=== PATIENT | female | born 1975 | race Caucasian/White ===

== ENCOUNTER 2019-02-27 19:04 | Observation (INO) ==
[2019-02-27] MEDS ORDERED: NARCAN IV ONE (19:53)
[2019-02-27 19:54] LABS: URINE SOURCE CATH
[2019-02-27 19:58] LABS: BILIRUBIN URINE NEGATIVE (NEGATIVE); BLOOD URINE NEGATIVE (NEGATIVE); COLOR YELLOW; GLUCOSE URINE NEGATIVE (NEGATIVE); KETONE URINE NEGATIVE (NEGATIVE); LEUKOCYTES URINE NEGATIVE (NEGATIVE); NITRITE URINE NEGATIVE (NEGATIVE); PROTEIN URINE NEGATIVE (NEGATIVE); SP GRAVITY URINE 1.008; TURBIDITY URINE CLEAR (CLEAR); UR EPITHELIAL CELLS <10 /HPF (<10); URINE BACTERIA NEGATIVE /HPF; URINE RBC <10 /HPF (<10); URINE WBC <10 /HPF (<10); UROBILINOGEN URINE NORMAL (NORMAL)
[2019-02-27 20:09] LABS: UR AMPHETAMINES QUAL NONE DETECTED (NONE DETECT); UR BARBITUATES QUAL NONE DETECTED (NONE DETECT); UR BENZODIAZEPIN QUAL NONE DETECTED (NONE DETECT); UR CANNABINOIDS QUAL NONE DETECTED (NONE DETECT); UR COCAINE QUAL NONE DETECTED (NONE DETECT); UR METHADONE QUAL NONE DETECTED (NONE DETECT); UR OPIATES QUAL NONE DETECTED (NONE DETECT); UR OXYCODONE QUAL NONE DETECTED (NONE DETECT); UR PCP QUAL NONE DETECTED (NONE DETECT)
[2019-02-27 20:13] LABS: BASO# 0.03 X1000 (0.0-0.2); BASO% 0.4 % (0.0-0.8); EOS% 1.3 % (0.0-10.0); HEMATOCRIT 44.9 % (37.0-47.0); HEMOGLOBIN 14.9 g/dL (12.0-16.0); LYMPH# 3.23 X1000 (1.2-3.4); LYMPH% 42.4 % (20.5-51.1); MCH 30.6 PG (27-31); MCHC 33.2 g/dL (33-37); MCV 92.2 FL (81-99); MONO# 0.53 X1000 (0.11-0.59); MPV 10.9 FL (7.4-10.4); NEUT# 3.72 X1000 (1.4-6.5); NEUT% 48.9 % (42.2-75.2); PLT 209 X1000 (130-400); RBC 4.87 XMIL (4.2-5.4); RDW 13.7 % (11.5-14.5); WBC 7.61 X1000 (4.8-10.8)
[2019-02-27 20:26] LABS: CHLORIDE 103 mmol/L (98-107); POTASSIUM 3.4 mmol/L (3.5-5.1); SODIUM 139 mmol/L (136-145)
[2019-02-27 20:34] LABS: INR 0.98; PROTIME 13.1 Seconds (11.0-16.0)
[2019-02-27 20:39] LABS: FREE T4 1.32 ng/dL (0.93-1.70); TSH 0.94 uIUmL (0.27-4.20)
[2019-02-27 21:09] LABS: AGAP 16; ALBUMIN 4.3 g/dL (3.5-5.0); BUN 4 mg/dL (8-22); CALCIUM 8.4 mg/dL (8.8-10.2); COSMO 278; CREATININE 0.8 mg/dL (0.5-0.9); GLUCOSE 97 mg/dL (70-104); TCO2 21 mmol/L (25-35); TOTAL BILIRUBIN 0.26 mg/dL (0.20-1.00)
[2019-02-27 21:10] LABS: ACETAMINOPHEN 62.1 ug/mL (10-30); ALB/GLOB RATIO 1.6; ALKALINE PHOSPHATASE 68 U/L (32-104); GOT 18 U/L (10-30); GPT 12 U/L (10-36)
[2019-02-27 21:35] LABS: ALLEN TEST YES; BE 0.2 mmoll (-3.0-3.0); BLOOD TYPE ARTERIAL; HCO3-(ACT) 24.8 mmoll (20.0-26.0); METHB 1.2 % (0.0-1.5); O2(CT) 19.4 mL/dL (15.0-23.0); PCO2(98.6) 39 mmHg (35-45); PO2(98.6) 99 mmHg (60-100); SAMPLE BLOOD; SAO2 99.3 % (95.0-100.0); THB 15.5 g/dL (11.5-17.4); pH(98.6) 7.41 (7.35-7.45)
[2019-02-27 21:38] LABS: O2HB 88.7 % (95.0-99.0)
[2019-02-27 21:39] LABS: MODALITY ROOM AIR
--- NOTE | 2019-02-27 21:42 | Diag Imaging Result Doc PS360 ---
EXAM: CT HEAD W/O CONTRAST INDICATION: AMS TECHNIQUE: This exam was performed using automated exposure control, adjustment of mA or kV according to patient size, and/or use of iterative reconstruction technique. COMPARISON: 06/06/2017 FINDINGS: There is no definite acute infarct given the limited sensitivity of CT versus MRI. There is no discrete intracranial mass, mass effect, or intracranial hemorrhage. The surrounding soft tissues and bony structures are essentially unremarkable. IMPRESSION: No evidence of acute intracranial pathology. Electronically signed by Andres Brenner 02/27/2019 9:39 PM
--- NOTE | 2019-02-27 21:54 | PROVIDER DOCUMENTATION ---
This chart was entered by Nolberto Cota Scribe, acting as scribe for Maddison Gandhi MD. [id number] Abuse/Overdose - General Chief Complaint: Suicide Attempt Stated Complaint: OVERDOSE Time Seen by Provider: 02/27/19 19:20 Source: patient, family Unable to obtain history due to:: altered Allergies/Adverse Reactions: Allergies Allergy/AdvReac Type Severity Reaction Status Date / Time lorazepam [From Ativan] Allergy Severe SHORTNESS Verified 02/27/19 19:50 OF BREATH Home Medications: Home Medication List Medication Instructions Recorded Confirmed Last Taken Type Escitalopram [Lexapro] 10 mg PO QAM 04/22/12 02/27/19 12/06/17 09:00 History Clonazepam [Klonopin] 0.5 mg PO DAILY #12 tab 04/10/17 02/27/19 12/06/17 09:00 Rx Tramadol [Ultram] 50 mg PO TID #15 tab 04/10/17 02/27/19 12/05/17 21:00 Rx Omeprazole [Prilosec] 20 mg PO DAILY@0700 #20 cap 06/06/17 02/27/19 12/06/17 09:00 Rx Rizatriptan Benzoate [Rizatriptan] 10 mg PO DAILY 06/06/17 02/27/19 12/06/17 09:00 History Topiramate 50 mg PO DAILY 06/06/17 02/27/19 12/06/17 09:00 History Phenazopyridine HCl [Pyridium] 200 mg PO TID #6 tab 12/06/17 02/27/19 Unknown Rx Sulfamethoxazole/Trimethoprim 1 ea PO BID #20 tab 12/06/17 02/27/19 Unknown Rx [Bactrim Ds Tablet] Etodolac [Lodine] 400 mg PO BID CC #20 tab 07/09/18 02/27/19 Unknown Rx Tramadol [Ultram] 50 mg PO Q6H PRN PRN #22 tab 07/09/18 02/27/19 Unknown Rx Promethazine [Phenergan] 25 mg PO Q6H PRN PRN #20 tab 10/21/18 02/27/19 Unknown Rx - History of Present Illness-Drug/Alcohol Nature of Presenting Problem: Pt is a 43 yof who presents to the ED with family with a CC of suicide attempt. Pt's sister reports the pt sent her a text this evening with a Ge.tt message. Pt's sister reports the pt took Tylenol and Gabapentin among other pills in an attempt to overdose. Pt's sister denies a previous suicide attempt, but reports a [facility] admission in the pt's teenage years. Family states that the bottle of tylenol had 100 tabs but was only about 1/3 full prior to today and patient took all of it. THey do not know what else she took. This episode of drinking or use began:: 1-3 hours ago Severity: reports: mild Psychiatric Complaints: reports: depressed, suicidal ideation Any injuries associated with this episode of intoxication?: No Similar Symptoms Previously?: No Recently seen or treated by another doctor?: No - Overdose Intentional drug overdose?: Yes Clinician's estimation of suicide risk?: high risk Review of Systems - Adult - REVIEW OF SYSTEMS - ADULT Constitutional: reports: see HPI Eyes: reports: no symptoms reported Ears, Nose, Mouth & Throat: reports: no symptoms reported Cardiovascular: reports: no symptoms reported Respiratory: reports: no symptoms reported Gastrointestinal: reports: no symptoms reported Genitourinary: reports: no symptoms reported Musculoskeletal: reports: no symptoms reported Integumentary: reports: no symptoms reported Neurological: reports: no symptoms reported Psychiatric: reports: see HPI, depression, suicidal thoughts Endocrine: reports: no symptoms reported Hematologic/Lymphatic: reports: no symptoms reported Allergic/Immunologic: reports: no symptoms reported All Other Systems: Reviewed and Negative Past History - Adult - PAST MEDICAL HISTORY-ADULT Review of Records: reports: Old Records Reviewed, Nursing Assessment Review, Medications Reviewed, Social history reviewed & non-contributory. Major Childhood Illnesses: reports: denies history Cardiovascular: reports: CAD, hyperlipidemia, PA Respiratory: reports: asthma, COPD, other (history of pneumothorax) Gastrointestinal: reports: denies history Obstetrical/Gynecological: reports: other (cervical cancer) Genitourinary: reports: denies history Musculoskeletal: reports: arthritis, chronic pain Neurological: reports: headaches/migraines, Seizures/Epilepsy Psychiatric: reports: depression Endocrine/Immune: reports: Diabetes, hypoglycemia, RA Other Conditions: reports: denies history - PRIOR SURGERIES/PROCEDURES Surgical/Procedure History: reports: appendectomy, hysterectomy, other (pneumothorax) - IMMUNIZATION STATUS Childhood Immunizations: See Nurse Assessment Flu Vaccine: See Nurse Assessment - FAMILY HISTORY Family History: reviewed, not pertinent - SOCIAL HISTORY Smoking: cigarettes, greater than 1 pack/day Substance Use: none/never, denies Alcohol Use Frequency: never Physical Exam-General - PHYSICAL EXAM-ADULT Exam Limited by: Pt's condition Initial Vital Signs Reviewed: Yes - CONSTITUTIONAL General Appearance: mild distress, other (Unresponsive; Exam limited due to pt's condition) - EYES Eyes: other (Exam limited due to pt's condition) - HEAD, EARS, NOSE, MOUTH & THROAT HENMT: normocephalic/atraumatic, other (Exam limited due to pt's condition) - NECK Neck: non-tender, other (Exam limited due to pt's condition) - RESPIRATORY Respiratory: lungs clear, normal breath sounds, no respiratory distress, other (Exam limited due to pt's condition) - CARDIOVASCULAR Cardiovascular: normal peripheral pulses, regular rate, rhythm, no edema, other (Exam limited due to pt's condition) - GASTROINTESTINAL (ABDOMEN) Abdominal Exam: non tender, soft, other (Exam limited due to pt's condition) - MUSCULOSKELETAL Extremity: non-tender, other (Exam limited due to pt's condition) - SKIN Integumentary: normal color, warm/dry, other (Exam limited due to pt's condition) - NEUROLOGIC Neurologic: motor weakness, sensory deficit, other (Exam limited due to pt's condition) - PSYCHIATRIC Psych/Mental Status: disoriented x 3, other (Exam limited due to pt's condition) Progress - PLAN OF CARE/RESULTS Progress/Plan/Lab Results: Vital Signs - 8 hr 02/27/19 20:30 02/27/19 20:45 02/27/19 21:00 Pulse Rate 68 70 72 Respiratory Rate 24 13 19 Blood Pressure O2 Sat by Pulse Oximetry 98 98 99 02/27/19 21:15 02/27/19 21:25 Pulse Rate 76 74 Respiratory Rate 20 21 Blood Pressure 105/74 O2 Sat by Pulse Oximetry 98 98 Laboratory Results - last 24 hr 02/27/19 02/27/19 02/27/19 19:15 19:15 19:15 WBC 7.61 RBC 4.87 Hgb 14.9 Hct 44.9 MCV 92.2 MCH 30.6 MCHC 33.2 RDW Std Deviation 13.7 Plt Count 209 MPV 10.9 H Neut % (Auto) 48.9 Lymph % (Auto) 42.4 [place] % (Auto) 7.0 Eos % (Auto) 1.3 Baso % (Auto) 0.4 Neut # (Auto) 3.72 Lymph # (Auto) 3.23 [place] # (Auto) 0.53 Eos # (Auto) 0.10 Baso # (Auto) 0.03 PT INR PTT (Actin FS) Specimen Type Sample Site pH pCO2 pO2 HCO3 Base Excess Oxyhemoglobin ABG O2 Sat (Calculated) ABG O2 Saturation ABG Carboxyhemoglobin ABG Methemoglobin Jerry Test A-a O2 Difference Total Hemoglobin Lactate Blood Gas Modality FiO2 % Sodium 139 Potassium 3.4 L Chloride 103 Carbon Dioxide 21 L Anion Gap 16 BUN 4 L Creatinine 0.8 BUN/Creatinine Ratio 5 Glucose 97 Calculated Osmolality 278 Calcium 8.4 L Total Bilirubin 0.26 Direct Bilirubin AST 18 ALT 12 Alkaline Phosphatase 68 Total Protein 7.0 Albumin 4.3 Globulin 2.7 Albumin/Globulin Ratio 1.6 Vitamin B12 472 TSH 0.94 Free T4 1.32 Urine Source Urine Color Urine Turbidity Urine pH Ur Specific [place] Urine Protein Ur Glucose (Stick) Ur Ketones (Stick) Urine Blood Urine Nitrite Urine Bilirubin Urobilinogen Dipstick Urine Leukocytes Urine WBC (Auto) Urine RBC (Auto) U Epithel Cells (Auto) Urine Bacteria (Auto) Salicylates 0.00 L Urine Opiates Screen Ur Oxycodone Screen Ur Methadone, Qual Acetaminophen 62.1 H Ur Barbiturates Screen Ur Phencyclidine Scrn Ur Amphetamines Screen U Benzodiazepines Scrn Urine Cocaine Screen U Cannabinoids Screen Plasma/Serum Ethyl Alc 02/27/19 02/27/19 02/27/19 19:15 19:15 19:15 WBC RBC Hgb Hct MCV MCH MCHC RDW Std Deviation Plt Count MPV Neut % (Auto) Lymph % (Auto) [place] % (Auto) Eos % (Auto) Baso % (Auto) Neut # (Auto) Lymph # (Auto) [place] # (Auto) Eos # (Auto) Baso # (Auto) PT 13.1 INR 0.98 PTT (Actin FS) 32.9 Specimen Type Sample Site pH pCO2 pO2 HCO3 Base Excess Oxyhemoglobin ABG O2 Sat (Calculated) ABG O2 Saturation ABG Carboxyhemoglobin ABG Methemoglobin Jerry Test A-a O2 Difference Total Hemoglobin Lactate Blood Gas Modality FiO2 % Sodium Potassium Chloride Carbon Dioxide Anion Gap BUN Creatinine BUN/Creatinine Ratio Glucose Calculated Osmolality Calcium Total Bilirubin Direct Bilirubin AST ALT Alkaline Phosphatase Total Protein Albumin Globulin Albumin/Globulin Ratio Vitamin B12 TSH Free T4 Urine Source Urine Color Urine Turbidity Urine pH Ur Specific [place] Urine Protein Ur Glucose (Stick) Ur Ketones (Stick) Urine Blood Urine Nitrite Urine Bilirubin Urobilinogen Dipstick Urine Leukocytes Urine WBC (Auto) Urine RBC (Auto) U Epithel Cells (Auto) Urine Bacteria (Auto) Salicylates Urine Opiates Screen Ur Oxycodone Screen Ur Methadone, Qual Acetaminophen Ur Barbiturates Screen Ur Phencyclidine Scrn Ur Amphetamines Screen U Benzodiazepines Scrn Urine Cocaine Screen U Cannabinoids Screen Plasma/Serum Ethyl Alc 02/27/19 02/27/19 02/27/19 19:23 19:23 21:25 WBC RBC Hgb Hct MCV MCH MCHC RDW Std Deviation Plt Count MPV Neut % (Auto) Lymph % (Auto) [place] % (Auto) Eos % (Auto) Baso % (Auto) Neut # (Auto) Lymph # (Auto) [place] # (Auto) Eos # (Auto) Baso # (Auto) PT INR PTT (Actin FS) Specimen Type ARTERIAL Sample Site R RADIAL pH 7.41 pCO2 39 pO2 99 HCO3 24.8 Base Excess 0.2 Oxyhemoglobin 88.7 L* ABG O2 Sat (Calculated) 19.4 ABG O2 Saturation 99.3 ABG Carboxyhemoglobin 9.60 H* ABG Methemoglobin 1.2 Jerry Test YES A-a O2 Difference 2.0 Total Hemoglobin 15.5 Lactate 0.60 Blood Gas Modality ROOM AIR FiO2 % 21.0 Sodium Potassium Chloride Carbon Dioxide Anion Gap BUN Creatinine BUN/Creatinine Ratio Glucose Calculated Osmolality Calcium Total Bilirubin Direct Bilirubin AST ALT Alkaline Phosphatase Total Protein Albumin Globulin Albumin/Globulin Ratio Vitamin B12 TSH Free T4 Urine Source CATH Urine Color YELLOW Urine Turbidity CLEAR Urine pH 6.0 Ur Specific [place] 1.008 Urine Protein NEGATIVE Ur Glucose (Stick) NEGATIVE Ur Ketones (Stick) NEGATIVE Urine Blood NEGATIVE Urine Nitrite NEGATIVE Urine Bilirubin NEGATIVE Urobilinogen Dipstick NORMAL Urine Leukocytes NEGATIVE Urine WBC (Auto) <10 Urine RBC (Auto) <10 U Epithel Cells (Auto) <10 Urine Bacteria (Auto) NEGATIVE Salicylates Urine Opiates Screen NONE DETECTED Ur Oxycodone Screen NONE DETECTED Ur Methadone, Qual NONE DETECTED Acetaminophen Ur Barbiturates Screen NONE DETECTED Ur Phencyclidine Scrn NONE DETECTED Ur Amphetamines Screen NONE DETECTED U Benzodiazepines Scrn NONE DETECTED Urine Cocaine Screen NONE DETECTED U Cannabinoids Screen NONE DETECTED Plasma/Serum Ethyl Alc 02/27/19 02/27/19 23:38 23:38 WBC RBC Hgb Hct MCV MCH MCHC RDW Std Deviation Plt Count MPV Neut % (Auto) Lymph % (Auto) [place] % (Auto) Eos % (Auto) Baso % (Auto) Neut # (Auto) Lymph # (Auto) [place] # (Auto) Eos # (Auto) Baso # (Auto) PT INR PTT (Actin FS) Specimen Type Sample Site pH pCO2 pO2 HCO3 Base Excess Oxyhemoglobin ABG O2 Sat (Calculated) ABG O2 Saturation ABG Carboxyhemoglobin ABG Methemoglobin Jerry Test A-a O2 Difference Total Hemoglobin Lactate Blood Gas Modality FiO2 % Sodium Potassium Chloride Carbon Dioxide Anion Gap BUN Creatinine BUN/Creatinine Ratio Glucose Calculated Osmolality Calcium Total Bilirubin 0.28 Direct Bilirubin 0.10 AST 15 ALT 12 Alkaline Phosphatase 68 Total Protein 6.9 Albumin 4.2 Globulin 2.7 Albumin/Globulin Ratio 1.6 Vitamin B12 TSH Free T4 Urine Source Urine Color Urine Turbidity Urine pH Ur Specific [place] Urine Protein Ur Glucose (Stick) Ur Ketones (Stick) Urine Blood Urine Nitrite Urine Bilirubin Urobilinogen Dipstick Urine Leukocytes Urine WBC (Auto) Urine RBC (Auto) U Epithel Cells (Auto) Urine Bacteria (Auto) Salicylates Urine Opiates Screen Ur Oxycodone Screen Ur Methadone, Qual Acetaminophen 14.9 Ur Barbiturates Screen Ur Phencyclidine Scrn Ur Amphetamines Screen U Benzodiazepines Scrn Urine Cocaine Screen U Cannabinoids Screen Plasma/Serum Ethyl Alc Orders Category [facility] Routine AdmDCTranf 02/28/19 02:13 Active Activity - Strict Bedrest ORDERED Care 02/28/19 02:13 Active Apply Mechanical Device [QM] ORDERED Care 02/28/19 02:13 Active Intake and Output-Strict ORDERED Care 02/28/19 02:13 Active Misc. NRSG Communication Order DIRECTED Care 02/27/19 23:06 Active Misc. NRSG Communication Order DIRECTED Care 02/27/19 23:42 Active Vital Signs Order Q1H Care 02/28/19 02:13 Active Z-Document. for Tele Applied ORDERED Care 02/28/19 02:13 Active Destiny Morel Routine Cons 02/28/19 08:00 Ordered NPO Diet 02/28/19 02:[address] HEAD W/O CONTRAST [CT] Stat Exams 02/27/19 21:20 Completed ABG [RESP] Routine Lab 02/27/19 21:25 Completed ALCOHOL BLOOD Stat Lab 02/27/19 19:15 Completed BASIC METABOLIC PANEL [CHEM] Routine Lab 02/28/19 04:04 Received CBC WITH DIFF [HEME] Routine Lab 02/28/19 04:04 Results CBC WITH ELECTRONIC DIFF [HEME] Stat Lab 02/27/19 19:15 Completed COMPREHENSIVE METABOLIC PANEL [CHEM] Stat Lab 02/27/19 19:15 Completed FREE T4 Stat Lab 02/27/19 19:15 Completed LFT [HEPATIC FUNCTION] [CHEM] Stat Lab 02/27/19 23:38 Completed MAGNESIUM [CHEM] Routine Lab 02/28/19 04:04 Received PROTIME WITH INR [COAG] Stat Lab 02/27/19 19:15 Completed PTT [COAG] Stat Lab 02/27/19 19:15 Completed SALICYLATES [TDM] Stat Lab 02/27/19 19:15 Completed TSH Routine Lab 02/28/19 04:04 Received TSH Stat Lab 02/27/19 19:15 Completed Tylenol [ACETAMINOPHEN] [TDM] Q4H Lab 02/28/19 04:04 Received Tylenol [ACETAMINOPHEN] [TDM] Q4H Lab 02/28/19 08:00 Ordered Tylenol [ACETAMINOPHEN] [TDM] Stat Lab 02/27/19 19:15 Completed Tylenol [ACETAMINOPHEN] [TDM] Stat Lab 02/27/19 23:38 Completed URINALYSIS W/POSS RFLX CULT [URINALYSIS] Stat Lab 02/27/19 19:23 Completed URINE DRUG SCREEN Stat Lab 02/27/19 19:23 Completed VITAMIN B12 Stat Lab 02/27/19 19:15 Completed 0.9% Sodium Chloride Inj [Ns] 1,000 ml Med 02/27/19 23:05 Active IV 75 mls/hr 0.9% Sodium Chloride Inj [Ns] 500 ml Med 02/27/19 23:36 Discontinued IV 999 mls/hr Albuterol 2.5MG/Ipratrop 0.5MG [Duoneb (A & A)] Med 02/28/19 04:00 Active 3 ml INH RTQ6H Naloxone [Narcan] Med 02/27/19 19:53 Discontinued 2 mg IV NOW ONE Omeprazole [Prilosec] Med 02/28/19 07:00 Active 20 mg PO DAILY@0700 Ondansetron [Zofran] Med 02/28/19 02:13 Active 4 mg IV Q4H PRN PRN Pantoprazole [Protonix] Med 02/27/19 23:09 Discontinued 40 mg IV NOW ONE Potassium Chloride E.r. [Klor-Con] Med 02/28/19 02:13 Discontinued 40 meq PO NOW ONE Sodium Chloride 0.9% Med 02/27/19 23:09 Discontinued 10 ml INJ NOW ONE Water, Sterile Inj [Sterile Water Inj] Med 02/27/19 22:14 Discontinued 10 ml .ROUTE .STK-MED ONE Ziprasidone [Geodon] Med 02/27/19 22:14 Discontinued 20 mg .ROUTE .STK-MED ONE Aerosol Treatments Routine Oth 02/28/19 02:13 Active Aerosol Treatments Stat Oth 02/28/19 02:13 Active Telemetry [OM.EQ] Routine Oth 02/28/19 02:13 Active EKG [EKG] Routine Ther 02/28/19 08:00 Ordered Transfer/Admit Order [TRANSFER] Routine Transfer 02/27/19 23:06 Completed Patient with ingestion of unknown amount of tylenol. Initial tylenol level is only 62. No need for NAC. CT Head negative for anything acute. Other tox negative. Spoke to Dr Mendoza astronomy professor for hospitalist and discussed need for a dmission for repeat tylenol levels and monitoring and likely psych eval in the morning. Further orders to be placed by their team. After admission patient became acutely angry and wanted to leave the hospital. She had a likely intentional OD and was altered upon arrival. Spoke to patient and she continues to try and be combative. Patient given geodon and calmed down. Result Diagrams: 02/27/19 19:15 02/27/19 19:15 - EKG 1 Time of EKG reading by physician:: 19:22 EKG Read and Signed by:: Maddison Gandhi EKG Interpretation (*Must complete 3 of following elements*): Abnormal (Low voltage QRS; Cannot rule out anterior infarct, age undetermined) Rate: 82 Rhythm: NSR [place]: normal QRS: other [place] Interval: normal ST Wave: normal - CT/MRI 1 CT Study: Head ( EXAM: CT HEAD W/O CONTRAST INDICATION: AMS TECHNIQUE: This exam was performed using automated exposure control, adjustment of mA or kV according to patient size, and/or use of iterative reconstruction technique. COMPARISON: 06/06/2017 FINDINGS: There is no definite acute infarct given the limited sensitivity of CT versus MRI. There is no discrete intracranial mass, mass effect, or intracranial hemorrhage. The surrounding soft tissues and bony structures are essentially unremarkable. IMPRESSION: No evidence of acute intracranial pathology. Electronically signed by Andres Brenner 02/27/2019 9:39 PM) - CONSULTS/PCP/HOSPITALIST Notification #1 *Consult/PCP/Hospitalist*: Dr Mendoza Time Discussed: 21:25 Consult Disposition: Admit Departure - Departure Date of Disposition Decision: 02/27/19 Time of Disposition Decision: 21:15 DIAGNOSIS: Tylenol overdose, Suicidal ideations Disposition: ADMITTED INPATIENT 09 Certified Medical Emergency: Emergent Condition: Critical - Critical Care Note This patient required my direct & personal management of CC.: Yes Total Time (mins): 35 Critical Care Statement: This patient required my direct personal management to treat or rule out processes, the absence of which, could potentiallly result in sudden, clinically significant life or limb threatening deterioration. Attestation - Physician/ TAMIKA Attestation Patient care was provided by Advanced Practice Provider:: No The physician spent face to face time with patient:: Yes Advanced Practice Provider documentation review:: Supervising physician onsite and consulted in the evaluation and care of this patient. The physician did have a face to face encounter with the patient. This chart was documented by the indicated scribe, (Nolberto Cota Scribe) and accurately reflects the services I performed and decisions made by me, Maddison Gandhi MD, as attested by the provider's signature.
[2019-02-27] MEDS ORDERED: GEODON ONE (22:14)
[2019-02-27] MEDS ORDERED: STERILE WATER INJ. ONE (22:14)
[2019-02-27] MEDS ORDERED: NS 1,000 ML IV ONE (23:05)
[2019-02-27] MEDS ORDERED: PROTONIX IV ONE (23:09)
[2019-02-27] MEDS ORDERED: SODIUM CHLORIDE 0.9% INJ ONE (23:09)
[2019-02-27] MEDS ORDERED: NS 500 ML IV ONE (23:36)
--- NOTE | 2019-02-28 01:32 | HISTORY AND PHYSICAL ---
CHIEF COMPLAINT: Overdose/suicide attempt. HPI: Ms. Leach is a 43-year-old female who came into the emergency room with family stating that she had attempted suicide. Sister reports that she sent her a text this evening with Vinte messages. Patient's sister reports that she took Tylenol, Neurontin, and Ambien. Apparently there have been no previous suicide attempts, however, she did go to [facility] in her teenage years. She was apparently hostile towards the ER staff, and they had given her Geodon on arrival. She was lethargic and slurring her speech during my interview. Stated that she did not want to hurt herself or others, She was upset with hers on. She will be admitted for further evaluation and treatment. PAST MEDICAL HISTORY: Diabetes mellitus type 2, hyperglycemic seizure, hyperlipidemia, anxiety, depression, bipolar, chronic pain syndrome of the neck, middle back and knees, GERD, COPD and asthma, rheumatoid arthritis, cervical cancer, status post total hysterectomy, myocardial infarction which was apparently medically treated, spontaneous pneumothorax at age 20. PREVIOUS SURGICAL HISTORY: Chest tube, total hysterectomy, appendectomy. SOCIAL HISTORY: Smokes a pack per day, has for 25 plus years. Denies alcohol or illicit drugs. Lives at home. She has 3 grown children. On disability secondary to anxiety and depression. FAMILY HISTORY: Father is from brain cancer. Mother is living but has a history of seizures. One brother has hyperlipidemia and myocardial infarction. A sister with rectal cancer. ALLERGIES: LORAZEPAM. HOME MEDICATIONS: 1. Klonopin 0.5 mg p.o. daily. 2. Lexapro 10 mg p.o. q.a.m. 3. Lodine 400 mg p.o. b.i.d. 4. Omeprazole 20 mg daily. 5. Pyridium 200 mg p.o. t.i.d. 6. Promethazine 25 mg p.o. q.6 p.r.n. 7. Rizatriptan 10 mg p.o. daily. 8. Bactrim DS 1 p.o. b.i.d. 9. Topiramate 15 mg p.o. daily. 10. Ultram 50 mg q.6 p.r.n. REVIEW OF SYSTEMS: A 14-point review of systems was limited related to patient's mentation. She denies complaint. Denies suicidal or homicidal ideation. PHYSICAL EXAMINATION: VITAL SIGNS: Temperature 97.7, pulse 74, respirations 21, blood pressure 105/74, oxygen saturation 98%. GENERAL: A 43-year-old female lying in the ER stretcher, lethargic after receiving 20 mg of Geodon. Family at bedside, supportive. HEENT: Head is atraumatic, normocephalic. Pupils equal, round, react to light. Extraocular eye movements intact. Sclera anicteric. Conjunctiva pink. Oral mucosa is moist. NECK: Supple. No JVD. No thyromegaly. Trachea is midline. No cervical lymphadenopathy. CARDIAC: S1, S2 appreciated. No murmurs, gallops or rubs. LUNGS: Mild expiratory wheeze. No rhonchi. No rales. Prolonged expiratory phase. Symmetric rise and fall respirations. ABDOMEN: Soft, nondistended, nontender. Bowel sounds present all 4 quadrants, normoactive. No pulsatile masses. No organomegaly. EXTREMITIES: No clubbing, cyanosis or edema. 2+ pedal pulses bilaterally. GENITOURINARY: No bladder distention. Patient voids. Otherwise deferred. NEUROLOGICAL: Lethargic, oriented to person, place, time and situation. She is tearful, slurring her speech. Has poor train of thought, however, she has received 20 mg of Geodon. Cranial nerves 2-12 appear to be grossly intact. DIAGNOSTIC DATA: CT of the head no acute intracranial process. LABORATORY DATA: CBC within normal limits. Coags within normal limits. ABG pH 7.41, pCO2 39, pO2 99, bicarb 24.8, this was on room air. Sodium 139, potassium 3.4, chloride 103, carbon dioxide 21, BUN 4, creatinine 0.8. Tylenol level 62.1. ASSESSMENT AND PLAN: 1. Intentional overdose. The patient's Tylenol level on arrival should have been around a 4-hour Tylenol if her timeline is correct. It was not high enough to warrant treatment. We will recheck again at 4 hours. At this time we will give the patient fluids, place her in ICU with a [facility] consultation. Hold all of her medications. 2. Suicide attempt. See #1. 3. Depression and anxiety. Aware. Patient will have [facility] consultation tomorrow. 4. Chronic pain. Will hold all medications at this time. Restart when appropriate. 5. Chronic obstructive pulmonary disease. Will place patient on DuoNebs. Smoking cessation was attempted with the patient, however, stated that she did not want to stop smoking at this time. She will be placed in ICU for close monitoring. As noted, we are waiting on a 4-hour recheck on the Tylenol. Will initiate treatment if warranted. Otherwise will continue fluids and continue to monitor liver function tests as well as Tylenol level. Further recommendations based on patient's clinical course. Dictated by LAURA Reed for Fredi Mendoza MD I have performed a face to face diagnostic evaluation. Labs/Xrays- reviewed. Exam- Chest- clear, CV- regular. A/P- Suspected tylenol overdose- Admit, repeat 4 hour Tylenol level, supportive care. psychiatry consult. Dr. Mendoza cc: LAURA Reed MD [facility]
[2019-02-28] MEDS ORDERED: ZOFRAN IV PRN (02:13)
[2019-02-28] MEDS ORDERED: KLOR-CON PO ONE (02:13)
[2019-02-28 02:49] LABS: ALB/GLOB RATIO 1.6; ALBUMIN 4.2 g/dL (3.5-5.0); DIRECT BILIRUBIN 0.1 mg/dL (0.00-0.20); TOTAL BILIRUBIN 0.28 mg/dL (0.20-1.00); TOTAL PROTEIN 6.9 g/dL (6.3-8.3)
[2019-02-28] MEDS: DUONEB (A & A) INH SCH ×4 (04:25→21:38)
[2019-02-28 04:29] LABS: BASO# 0.03 X1000 (0.0-0.2); BASO% 0.6 % (0.0-0.8); EOS# 0.12 X1000 (0.0-0.7); EOS% 2.3 % (0.0-10.0); HEMATOCRIT 46.2 % (37.0-47.0); HEMOGLOBIN 14.7 g/dL (12.0-16.0); LYMPH# 2.58 X1000 (1.2-3.4); LYMPH% 49.3 % (20.5-51.1); MCH 29.8 PG (27-31); MCHC 31.8 g/dL (33-37); MCV 93.5 FL (81-99); MONO% 7.6 % (1.7-9.3); MPV 10.5 FL (7.4-10.4); NEUT% 40.2 % (42.2-75.2); PLT 197 X1000 (130-400); RBC 4.94 XMIL (4.2-5.4); RDW 13.5 % (11.5-14.5); WBC 5.23 X1000 (4.8-10.8)
[2019-02-28 04:47] LABS: AGAP 10; BUN 5 mg/dL (8-22); CALCIUM 8.4 mg/dL (8.8-10.2); CHLORIDE 107 mmol/L (98-107); COSMO 272; CREATININE 0.8 mg/dL (0.5-0.9); ESTIMATED GFR > 60; GLUCOSE 81 mg/dL (70-104); MAGNESIUM 1.9 mg/dL (1.5-2.7); POTASSIUM 3.5 mmol/L (3.5-5.1); SODIUM 138 mmol/L (136-145); TCO2 21 mmol/L (25-35)
--- NOTE | 2019-02-28 05:28 | EKG Report ---
Test Performed on : 02/27/2019 7:21:24 PM Test Reason : chest pain Blood Pressure : / mmHG Vent. Rate : 082 BPM Atrial Rate : 082 BPM P-R Int : 132 ms QRS Dur : 076 ms QT Int : 368 ms P-R-T Axes : 063 051 041 degrees QTc Int : 429 ms Normal sinus rhythm. Low voltage QRS Cannot rule out Anterior infarct , age undetermined Abnormal ECG When compared with ECG of 28-APR-2018 22:49, Nonspecific T wave abnormality no longer evident in Lateral leads Confirmed by Palma JAMISON, Keven Ugalde ([id number]) on 03/01/2019 7:29:48 AM
[2019-02-28] MEDS ORDERED: NS 1,000 ML IV ONE (08:49)
--- NOTE | 2019-02-28 08:49 | Diag Imaging Result Doc PS360 ---
EXAM: CHEST-2 VIEWS 02/28/2019 HISTORY: per Dr. Erickson TECHNIQUE: PA and lateral chest COMMENT: The inspiration is less optimal than on 11/18/2017. The heart size and pulmonary vascularity are within normal limits. Overall there has been no significant change since the previous study. IMPRESSION: Stable chest. Electronically signed by Kelvin Bello 02/28/2019 8:47 AM
[2019-02-28] MEDS: PRILOSEC PO SCH (08:58)
[2019-02-28 10:07] LABS: AGAP 11; ALB/GLOB RATIO 1.8; ALBUMIN 3.9 g/dL (3.5-5.0); ALKALINE PHOSPHATASE 61 U/L (32-104); BUN 6 mg/dL (8-22); CALCIUM 8.5 mg/dL (8.8-10.2); CHLORIDE 110 mmol/L (98-107); COSMO 280; CREATININE 0.8 mg/dL (0.5-0.9); ESTIMATED GFR > 60; GLUCOSE 79 mg/dL (70-104); GOT 15 U/L (10-30); GPT 11 U/L (10-36); POTASSIUM 4.6 mmol/L (3.5-5.1); SODIUM 142 mmol/L (136-145); TCO2 21 mmol/L (25-35); TOTAL BILIRUBIN 0.33 mg/dL (0.20-1.00); TOTAL PROTEIN 6.1 g/dL (6.3-8.3)
--- NOTE | 2019-02-28 10:11 | PROGRESS NOTE ---
DATE: 02/28/2019 SUBJECTIVE: This patient is resting comfortably in bed. Her acetaminophen level right now is low at 1.2, but she came in with a level of 62.1. I asked the nurse to call right now to the Poison Control Center. I also requested new LFTs at this moment. She seems to be alert. She is oriented. I will start this patient on a liquid diet. OBJECTIVE: Vital Signs: Temperature 98 degrees, pulse 79, respiratory rate 23, blood pressure 86/57, oxygen saturation 97% on room air. HEENT: Head normocephalic. No trauma. PERRLA. Neck: Supple. No JVD. No masses. Central trachea. Chest: Clear to auscultation. No wheezing. No rales. Abdomen: Soft, nontender, nondistended. No hepatosplenomegaly. Extremities: No edema. No clubbing. No cyanosis. Neurological: The patient is alert. She is oriented x3. No focal deficits. She seems to be depressed. LABORATORY: WBC 5.2, hemoglobin 14.7, hematocrit 46.2, platelets 197,000. Sodium 138, potassium 3.5, chloride 107, bicarbonate 21, BUN 5, creatinine 0.8, glucose 81, calcium 8.4. Magnesium 1.9. TSH 0.97. ASSESSMENT AND PLAN: 1. Drug overdose, apparently this patient took some Tylenol, gabapentin and a depression medication that she does not remember the name. We will continue to monitor. She seems to be stable. I asked the nurse to call the Poison Control Center to let them know. I have requested an x-ray, that looks fine and also requested a new CMP to check the liver function tests. 2. Possible intentional drug overdose/suicide attempt. This patient denies a suicide attempt. She will be evaluated by psychiatric department. 3. Hypotension. I will bolus her. It looks like her blood pressure has been low during the night. Kidney function seems to be stable, so probably this blood pressure is normal for her, but we will monitor. 4. Depression and anxiety, aware. She takes a medication at home for depression and anxiety. She does not remember the name. 5. Chronic pain. Will monitor. 6. History of chronic obstructive pulmonary disease. Continue with breathing treatment. 7. Tobacco use. This patient has been highly advised against tobacco use. Will continue with daily cessation education. 8. It looks like the night doctor consulted [facility] for evaluation. This patient is a little bit hypotensive at this moment, but she seems to be stable. cc: Mendel Mccrary MD
[2019-02-28] MEDS: NICODERM PATCH TD SCH (11:54)
[2019-02-28] MEDS ORDERED: VIIBRYD PO ONE (14:12)
[2019-03-01] MEDS ORDERED: TUMS EXTRA STRENGTH PO ONE (00:30)
[2019-03-01] MEDS: DUONEB (A & A) INH SCH ×2 (03:22→11:11)
[2019-03-01 05:45] LABS: BASO# 0.05 X1000 (0.0-0.2); BASO% 0.8 % (0.0-0.8); EOS# 0.09 X1000 (0.0-0.7); EOS% 1.4 % (0.0-10.0); HEMATOCRIT 40.2 % (37.0-47.0); HEMOGLOBIN 12.7 g/dL (12.0-16.0); LYMPH# 2.46 X1000 (1.2-3.4); LYMPH% 37.3 % (20.5-51.1); MCH 29.6 PG (27-31); MCHC 31.6 g/dL (33-37); MCV 93.7 FL (81-99); MONO# 0.57 X1000 (0.11-0.59); MONO% 8.6 % (1.7-9.3); MPV 11.1 FL (7.4-10.4); NEUT# 3.43 X1000 (1.4-6.5); NEUT% 51.9 % (42.2-75.2); PLT 189 X1000 (130-400); RBC 4.29 XMIL (4.2-5.4); RDW 13.5 % (11.5-14.5)
[2019-03-01 06:04] LABS: AGAP 10; ALB/GLOB RATIO 1.4; ALBUMIN 3.3 g/dL (3.5-5.0); ALKALINE PHOSPHATASE 60 U/L (32-104); BUN 6 mg/dL (8-22); CALCIUM 7.9 mg/dL (8.8-10.2); CHLORIDE 109 mmol/L (98-107); CK PROFILE 51 U/L (24-173); COSMO 277; CREATININE 0.8 mg/dL (0.5-0.9); ESTIMATED GFR > 60; GLUCOSE 101 mg/dL (70-104); GOT 14 U/L (10-30); GPT 10 U/L (10-36); MAGNESIUM 1.8 mg/dL (1.5-2.7); PHOSPHORUS 2.9 mg/dL (2.7-4.5); SODIUM 140 mmol/L (136-145); TCO2 21 mmol/L (25-35); TOTAL BILIRUBIN 0.21 mg/dL (0.20-1.00); TOTAL PROTEIN 5.6 g/dL (6.3-8.3)
[2019-03-01] MEDS: PRILOSEC PO SCH (06:04)
--- NOTE | 2019-03-01 07:30 | EKG Report ---
Test Performed on : 02/28/2019 06:46:42 AM Test Reason : chest pain Blood Pressure : / mmHG Vent. Rate : 061 BPM Atrial Rate : 061 BPM P-R Int : 132 ms QRS Dur : 080 ms QT Int : 424 ms P-R-T Axes : 066 062 044 degrees QTc Int : 426 ms Normal sinus rhythm. Normal ECG When compared with ECG of 27-FEB-2019 19:21, (Unconfirmed) No significant change was found Confirmed by Keven Waldrop MD ([id number]) on 03/01/2019 7:30:40 AM
--- NOTE | 2019-03-01 07:52 | PROGRESS NOTE ---
DATE: 03/01/2019 SUBJECTIVE: The patient is resting comfortably in bed. She is tolerating p.o. Vital signs are stable. As per the patient, her blood pressure always has been in the 80s and 90s so this is her baseline. No acute events overnight. We have requested an evaluation by psychiatric department and depending on that, she will go home or she will need to go to a psychiatric unit. OBJECTIVE: Vital Signs: Temperature 98.4 degrees, pulse 79, respiratory rate 24, blood pressure 109/65, and oxygen saturation 99 percent on room air. HEENT: Head normocephalic. No trauma. PERRLA. Neck: Supple. No JVD. No masses. Central trachea. Chest: Clear to auscultation. No wheezing. No rales. Abdomen: Soft, nontender, and nondistended. No hepatosplenomegaly. Extremities: No edema. No clubbing. No cyanosis. Neurological: This patient is alert. She is oriented x3. No focal neurological deficits. LABORATORY: WBC 6.6, hemoglobin 12.7, hematocrit 40.2, and platelets 189,000. Sodium 140, potassium 4, chloride 109, bicarbonate 21, BUN 6, creatinine 0.8, glucose 101, calcium 7.9, and albumin 3.3. ASSESSMENT AND PLAN: 1. Drug overdose. It looks like this patient took Tylenol, gabapentin, and also her medication for depression, which she is Viibryd. As per the family when they brought this patient to the emergency department, they state that she had attempted suicide. The patient is denying this. I will wait for psychiatric evaluation. 2. Possible intentional drug overdose/suicide attempt as above. 3. Hypotension, this is her baseline. We will continue to monitor. She is asymptomatic and kidney function is stable. 4. Depression and anxiety. Aware. She takes medication at home for depression and anxiety. 5. Chronic pain. We will monitor. 6. History of chronic obstructive pulmonary disease. Continue breathing treatment. 7. Tobacco abuse. This patient has been highly advised against tobacco use. I will continue with daily cessation education. 8. Overall, this patient is medically stable, I will wait for psychiatric evaluation to see if this patient can go home, or if she needs to go to a psychiatric unit. cc: Mendel Mccrary MD
[2019-03-01] MEDS ORDERED: VIIBRYD PO SCH (08:00)
[2019-03-01] MEDS: NICODERM PATCH TD SCH (08:02)
[2019-03-01 12:40] VITALS: BP 98/52
--- NOTE | 2019-03-01 22:45 | DISCHARGE SUMMARY ---
ADMISSION DATE: 02/28/2019 DISCHARGE DATE: 03/01/2019 DISCHARGE DIAGNOSES: 1. Apparently accidental drug overdose. 2. Suicide attempt has been ruled out. 3. Hypotension. This is her baseline. 4. Depression and anxiety. 5. Chronic pain. 6. History of chronic obstructive pulmonary disease, not in exacerbation. 7. Tobacco abuse. PROCEDURES PERFORMED: Head CT scan dated 02/27/2019: No evidence of acute intracranial pathology. Chest x-ray dated 02/28/2019 impression: Stable chest. HOSPITAL COURSE: A 43-year-old female admitted on 02/28/2019. She came into the emergency room, with family stating that she had attempted suicide. Her sister reports that she sent her a text message this evening with [employer] messages. The patient's sister reports said that she took Tylenol, Neurontin and Ambien. Apparently, there have not been previous suicide attempts; however, she did go to [facility] in her teenage years. She was apparently hostile toward the ER staff and they gave her Geodon on arrival. She was lethargic during the initial examination by the [facility] admitting personnel. She states that she did not want to hurt herself or others. She was upset with her son. She was admitted. CT scan of the head did not show any abnormality. Chest x-ray did not show any abnormality. The only problem was a low blood pressure, but apparently as per the patient this is normal for her. All the laboratory including BUN and creatinine were within normal limits. When I evaluated this patient the following day she was more calm and resting in bed. I talked to her and she told me that she did not want to hurt herself or others, that she was complaining of headache and she took more Tylenol than normal. She took it every 1 or 2 hours. Today when I examine her she was telling me the same story, and she was not aggressive or trying to get any kind of medication from me. Laboratory was stable as well as the vital signs. I kept the patient in the ICU. We did a toxicology exam that showed an elevated acetaminophen level of 62.1. I requested the nurse to call the Poison Control Center, but the acetaminophen level actually dropped and it was less than 1.2 the following morning. No signs of liver dysfunction. Actually, we repeated 4 times her LFTs and they were completely normal. The Poison Control Center was contacted, like I mentioned before, and apparently they were already called earlier on 02/28/2019. We informed about the new labs and they recommended continue treatment as per the hospitalist. I consulted [facility], the psychiatric center. They evaluated this patient, they talked to the patient and they have decided that this patient is not suicidal and she does not meet criteria for admission. They talked to her about what to do and who to call if she gets any kind of crisis. She seems to understand. She is stable enough to go home, so she will be discharged. PHYSICAL EXAMINATION: Vital signs: Temperature 98.4 degrees, pulse 96, respiratory rate 19, blood pressure 98/52, oxygen saturation 100% on room air. HEENT: Head normocephalic, no trauma. PERRLA. Neck is supple. No JVD. No masses. Central trachea. Chest clear to auscultation. No wheezing. No rales. Abdomen is soft, nontender, nondistended. No hepatosplenomegaly. Extremities: No edema, no clubbing. No cyanosis. Neurological: The patient is alert and oriented x3. No focal deficits. LABORATORY DATA: WBC 6.6, hemoglobin 12.7, hematocrit 40.2, platelets 189,000. Sodium 140, potassium 4, chloride 109, bicarbonate 21, BUN 6, creatinine 0.8, glucose 101, calcium 7.9, phosphorus 2.9, magnesium 1.8. AST 14, ALT 10, alkaline phosphatase 60, albumin 3.3. DISCHARGE MEDICATIONS: Basically this patient will continue with home medication with Klonopin 0.5 mg p.o. daily; escitalopram 10 mg p.o. q.a.m.; omeprazole 20 mg p.o. daily; Pyridium 200 mg p.o. t.i.d.; rizatriptan 10 mg p.o. daily; topiramate 50 mg p.o. daily; tramadol 50 mg p.o. q.6 hours as needed; Viibryd 20 mg p.o. daily. Time discharging this patient and talking to the patient about safety, situations and counseling the patient was around 35 minutes. cc: Mendel Mccrary MD
== END 2019-03-01 14:20 | disposition home or self-care (01) ==
LOC: ED 19:04 → DIRADM 23:07 → OPS 23:07 → ICU 23:07 → EDIPHOLD 02-28 01:06 → SUATTDRO 02-28 01:06 → ICU 02-28 11:46
PROVIDERS: ADMIT Emergency Medicine; ATTEND Emergency Medicine